=== PATIENT | male | born 1955 | race Caucasian/White ===

== ENCOUNTER 2018-10-13 07:03 | Emergency (ER) | payer BC ==
[~2018-10-13] VITALS: Ht 177.8 cm; Wt 81.8 kg
[2018-10-13] MEDS ORDERED: ADVI100T PO (07:15)
[2018-10-13] MEDS ORDERED: KETOROLAC 30 MG/ML VIAL (J1885) IV ONE (07:30)
[2018-10-13] MEDS ORDERED: NS 1,000 ML IV ONE (07:30)
[2018-10-13] MEDS ORDERED: ONDANSETRON 4 MG ORAL DISINTEGRATING TAB (Q0162 PER 1MG) PO ONE (07:30)
[2018-10-13 08:02] LABS: BASO # 0.1 10^3/uL (0.0-0.2); EOS # 0.2 10^3/uL (0.0-0.50); EOS % 1.6 % (0.0-3.0); HEMOGLOBIN 17.9 g/dl (13.5-17.5); LYMPH # 1.6 10^3/uL (1.5-4.5); LYMPH % 15.6 % (24.0-44.0); MEAN CORPUSCULAR HEMOGLOBIN 34.2 pg (27.0-33.0); MEAN CORPUSCULAR HGB CONC 34.4 g/dl (32.0-36.5); MEAN CORPUSCULAR VOLUME 99.4 fl (80.0-96.0); MONO # 0.8 10^3/uL (0.0-0.8); MONO % 7.4 % (0.0-5.0); NEUTROPHILS # 7.8 10^3/uL (1.8-7.7); NEUTROPHILS % 73.9 % (36.0-66.0); PLATELET COUNT, AUTOMATED 332 10^3/uL (150-450); RED BLOOD COUNT 5.23 10^6/uL (4.30-6.10); WHITE BLOOD COUNT 10.5 10^3/uL (4.0-10.0)
[2018-10-13 08:51] LABS: ALBUMIN 4.1 GM/DL (3.2-5.2); BILIRUBIN,DIRECT 0.1 MG/DL (0.0-0.2); BILIRUBIN,TOTAL 0.6 MG/DL (0.2-1.0); TOTAL PROTEIN 7.8 GM/DL (6.4-8.2)
--- NOTE | 2018-10-13 09:13 | REPVR ---
EXAM: CT Abdomen and Pelvis Without Contrast EXAM DATE/TIME: 10/13/2018 7:25 AM CLINICAL HISTORY: 63 years old, male; Abdominal pain; Flank; Right lower quadrant (rlq); Prior surgery; Surgery date: 6+ months; Surgery type: Litho; Additional info: Rlq abdominal pain- R/O urolithiasis TECHNIQUE: Imaging protocol: Axial computed tomography images of the abdomen and pelvis without contrast. Coronal and sagittal reformatted images were created and reviewed. Radiation optimization: All CT scans at this facility use at least one of these dose optimization techniques: automated exposure control; mA and/or kV adjustment per patient size (includes targeted exams where dose is matched to clinical indication); or iterative reconstruction. COMPARISON: No relevant prior studies available. FINDINGS: Detailed evaluation of the abdominal and pelvic viscera is somewhat limited in the absence of intravenous contrast. Pleural space: No acute airspace or pleural disease. Liver: Fatty infiltration of the liver. Gallbladder and bile ducts: No cholelithiasis or biliary ductal dilatation. Pancreas: No pancreatic mass or ductal dilatation. Spleen: No splenomegaly. Adrenals: Unremarkable adrenals. Kidneys and ureters: Mild right hydronephrosis in association with a 2 mm right UVJ calculus. 5.0 x 3.9 cm left renal cyst. Mild infiltration of perinephric fat. Stomach and bowel: Wall thickening in the nondistended stomach. Localized jejunal pneumatosis (axial image 86, coronal image 22). No significant small bowel dilatation. Appendix: No acute appendicitis. Intraperitoneal space: No free fluid. Vasculature: Vascular calcification. Normal caliber of the abdominal aorta. Lymph nodes: No pathologically enlarged lymph nodes. Bladder: Nondistended bladder limiting evaluation. Reproductive: Punctate prostate calcifications. Bones/joints: Mild degenerative change and disc bulging. Soft tissues: Unremarkable. IMPRESSION: 1. Mild right hydronephrosis in association with a 2 mm right UVJ calculus. 2. Localized jejunal pneumatosis (axial image 86, coronal image 22). 3. Additional findings as described above. Electronically signed by: John Perez On 10/13/2018 09:13:28 AM
[2018-10-13] MEDS: MORPHINE 4 MG/ML 1ML VIAL/SYRINGE (J2270) IV PRN ×2 (10:08→10:42)
[2018-10-13] MEDS ORDERED: TAMSULOSIN 0.4 MG CAP PO ONE (10:15)
[2018-10-13] MEDS ORDERED: [UNRECOGNIZED DRUG - CODE] PO (10:20)
[2018-10-13] MEDS ORDERED: COLA100C5 PO (10:20)
[2018-10-13] MEDS ORDERED: FLOM0.4C39 PO (10:20)
[2018-10-13] MEDS ORDERED: ONDA8TAB8 PO (10:20)
[2018-10-13 10:48] VITALS: BP 130/72
--- NOTE | 2018-10-22 09:48 | ED PDOC ---
Post-Departure Follow-Up certified letter sent to pt re formal read of ct abd/p Dayami Adams MD Oct 22, 2018 09:48
== END 2018-10-13 10:51 | disposition home or self-care (01) ==
LOC: M ED 07:03
DX: N20.0 Calculus of kidney (principal); N20.1 Calculus of ureter; R74.8 Abnormal levels of other serum enzymes
CPT/HCPCS: 74176; 80047; 80076; 81001; 83690; 85025; 96374; 96375; 99284; J1885; J2270; Q0162